=== PATIENT | male | born 1940 | race Caucasian/White ===

== ENCOUNTER 2017-08-27 08:35 | Emergency (ER) | payer MEDICARE, BC ==
[2017-08-27] MEDS ORDERED: Digoxin 500 MCG/2 ML Amp IVPUSH ONE (08:58)
--- NOTE | 2017-08-27 09:04 | EDM.PDOC ---
ED HPI GENERAL MEDICAL PROBLEM - General Chief Complaint: Cardiovascular Problem Stated Complaint: A FIB Time Seen by Provider: 08/27/17 08:45 Source of Information: Reports: Patient, Old Records History Limitations: Reports: No Limitations - History of Present Illness INITIAL COMMENTS - FREE TEXT/NARRATIVE: 77 yo male with a hx of intermittent Afib was started yesterday on Diltiazem for rate control. Says his BP pre-diltiazem was about 120 systolic. Now he is light-headed when he gets up. Arrives for this reason in the ER via EMS from his home. He denies CP or SOB. His last INR was about 3 weeks ago(is on warfarin ). Has not tolerated beta blockers in the past(or Sotalol) for the same reason that he is not today tolerating the diltiazem. The dose of his Cardizem CD is 120 mg and his HR with this is running from 90-115/min at rest. BP per EMS pre- fluid bolus was about 80-90 systolic. 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/IO (IV fluids per EMS with some improvement in sx's already.) - Related Data Allergies Allergy/AdvReac Type Severity Reaction Status Date / Time No Known Allergies Allergy Verified 08/27/17 08:41 Home Meds: Home Meds Finasteride [Proscar] 5 mg PO BEDTIME 06/30/15 [History] Pravastatin [Pravachol] 40 mg PO BEDTIME 06/30/15 [History] Tamsulosin [Flomax] 1 cap PO DAILY 06/30/15 [History] Warfarin [Coumadin] 7.5 mg PO ASDIRECTED 06/30/15 [History] Warfarin [Coumadin] 10 mg PO ASDIRECTED 06/30/15 [History] Diltiazem HCl [Cartia Xt] 120 mg PO DAILY 08/27/17 [History] Magnesium Chloride [Slow-Mag] 71.5 mg PO DAILY 08/27/17 [History] Past Medical History HEENT History: Reports: Impaired Vision - Past Surgical History Other Cardiovascular Surgeries/Procedures: cardiac ablation GI Surgical History: Reports: Appendectomy, Hernia Repair/Other Male Surgical History: Reports: Vasectomy Musculoskeletal Surgical History: Reports: Knee Replacement Other Musculoskeletal Surgeries/Procedures:: knee replacement Social & Family History - Tobacco Use Smoking Status *Q: Never Smoker Second Hand Smoke Exposure: No - Caffeine Use Caffeine Use: Reports: Coffee - Alcohol Use Days Per Week of Alcohol Use: 2 Number of Drinks Per Day: 1 Total Drinks Per Week: 2 - Recreational Drug Use Recreational Drug Use: No Drug Use in Last 12 Months: No ED ROS GENERAL - Review of Systems Review Of Systems: See Below Constitutional: Reports: No Symptoms HEENT: Reports: No Symptoms Respiratory: Reports: No Symptoms Cardiovascular: Reports: Lightheadedness (when upright) Endocrine: Reports: No Symptoms GI/Abdominal: Reports: No Symptoms : Reports: No Symptoms Musculoskeletal: Reports: No Symptoms Skin: Reports: No Symptoms Neurological: Reports: No Symptoms Psychiatric: Reports: No Symptoms ED EXAM, GENERAL - Physical Exam Exam: See Below Exam Limited By: No Limitations General Appearance: Alert, WD/WN, No Apparent Distress Eye Exam: Bilateral Eye: Normal Inspection, PERRL Ears: Normal External Exam, Normal Canal, Hearing Grossly Normal, Normal TMs Ear Exam: Bilateral Ear: Auricle Normal, Canal Normal Nose: Normal Inspection, Normal Mucosa, No Blood Throat/Mouth: Normal Inspection, Normal Lips, Normal Oropharynx, Normal Voice, No Airway Compromise Head: Atraumatic, Normocephalic Neck: Normal Inspection, Supple, Non-Tender Respiratory/Chest: No Respiratory Distress, Lungs Clear, Normal Breath Sounds Cardiovascular: Tachycardia, Irregularly Irregular GI/Abdominal: Normal Bowel Sounds, Soft, Non-Tender, No Distention Back Exam: Normal Inspection. No: CVA Tenderness (R), CVA Tenderness (L) Extremities: Normal Inspection, Normal Range of Motion, Non-Tender, No Pedal Edema Neurological: Alert, Oriented, CN II-XII Intact, Normal Cognition, No Motor/ Sensory Deficits Psychiatric: Normal Affect, Normal Mood Skin Exam: Warm, Dry, Intact, Normal Color, No Rash Lymphatic: No Adenopathy EKG INTERPRETATION EKG Date: 08/27/17 Time: 07:45 Rhythm: A-Fib Rate (Beats/Min): 115 [place]: Normal P-Wave: Absent QRS: Wide (non-specific intraventricular conduction block) ST-T: Normal QT: Normal Comparison: NA - No Prior EKG EKG Interpretation Comments: Done by EMS before arrival. Course - Vital Signs Text/Narrative:: Was able to ambulate in the ER without any more light-headedness. Last Recorded V/S: Last Vital Signs Temp 36.4 C 08/27/17 08:48 Pulse 99 08/27/17 09:06 Resp 16 08/27/17 08:48 BP 111/51 L 08/27/17 08:48 Pulse Ox 94 L 08/27/17 08:48 - Orders/Labs/Meds Orders: Active Orders 24 hr Category Date Time Status Cardiac Monitoring [RC] .As Directed Care 08/27/17 08:41 Active Labs: Laboratory Tests 08/27/17 08/27/17 08/27/17 Range/Units 08:51 08:51 08:51 WBC 7.0 (4.5-11.0) K/uL RBC 4.76 (4.30-5.90) M/uL Hgb 14.5 (12.0-15.0) g/dL Hct 44.6 (40.0-54.0) % MCV 94 (80-98) fL MCH 31 (27-31) pg MCHC 33 (32-36) % Plt Count 271 (150-400) K/uL PT 27.4 H (9.5-12.0) sec INR 2.47 H (0.80-1.20) Sodium 142 (140-148) mmol/L Potassium 4.3 (3.6-5.2) mmol/L Chloride 107 (100-108) mmol/L Carbon Dioxide 27 (21-32) mmol/L Anion Gap 8.3 (5.0-14.0) mmol/L BUN 18 (7-18) mg/dL Creatinine 1.1 (0.8-1.3) mg/dL Est Cr Clr Drug Dosing 62.71 mL/min Estimated GFR (MDRD) > 60 (>60) Glucose 123 H (74-106) mg/dL Calcium 9.0 (8.5-10.1) mg/dL Troponin I 0.017 (0.000-0.056) ng/mL Meds: Medications Discontinued Medications Generic Name Dose Route Start Last Admin Trade Name Freq PRN Reason Stop Dose Admin Digoxin 500 mcg 08/27/17 08:58 08/27/17 09:06 Lanoxin IVPUSH 08/27/17 08:59 500 mcg ONETIME ONE Administration Departure - Departure Time of Disposition: 09:40 Disposition: Home, Self-Care 01 Condition: Good Clinical Impression: Hypotension due to medication, Atrial fibrillation with RVR Referrals: PCP,None [Primary Care Provider] - Forms: ED Department Discharge - My Orders Last 24 Hours: My Active Orders 08/27/17 08:41 Cardiac Monitoring [RC] .As Directed - Assessment/Plan Last 24 Hours: My Active Orders 08/27/17 08:41 Cardiac Monitoring [RC] .As Directed
[2017-08-27 09:17] VITALS: BP 111/51
== END 2017-08-27 10:00 | disposition home or self-care (01) ==
LOC: JP.ED 08:35
DX: I95.2 Hypotension due to drugs (principal); T46.1X5A Adverse effect of calcium-channel blockers, initial encounter; I48.91 Unspecified atrial fibrillation; Z79.01 Long term (current) use of anticoagulants; Z79.899 Other long term (current) drug therapy
CPT/HCPCS: 36415; 80048; 84484; 85027; 85610; 96374; 99284; J1160; 99283

== ENCOUNTER 2023-12-20 15:30 | Emergency (ER) | payer MEDICARE ==
[2023-12-20 16:20] VITALS: BP 136/73; PULSE 63
== END 2023-12-20 16:48 | disposition left against medical advice (07) ==
LOC: JP.ED 15:30
DX: Z53.21 Procedure and treatment not carried out due to patient leaving prior to being seen by health care provider (principal)

== ENCOUNTER 2025-01-30 10:50 | Emergency (ER) | payer MEDICARE ==
[2025-01-30 11:15] VITALS: PULSE 60
[2025-01-30] MEDS: Tranexamic Acid 1,000 MG/10 ML Vial TOP ONE (11:35)
[2025-01-30 11:55] LABS: BASOPHILS ABSOLUTE AUTO 0.06 K/uL (0.00-0.10); BASOPHILS PERCENT AUTO 0.7 % (0.1-1.3); HEMATOCRIT 40.1 % (38.4-49.7); IMMATURE GRAN PERCENT AUTO 0.2 % (0.0-0.7); LYMPHOCYTES ABSOLUTE AUTO 1.28 K/uL (0.8-3.3); LYMPHOCYTES PERCENT AUTO 14.7 % (11.4-47.7); MEAN CORPUSCULAR HEMOGLOBIN 30.1 pg (31.6-35.5); MEAN CORPUSCULAR HGB CONC 32.4 g/dL (31.6-35.5); MEAN CORPUSCULAR VOLUME 92.8 fL (81.4-99.0); MONOCYTES ABSOLUTE AUTO 0.46 K/uL (0.20-0.90); MONOCYTES PERCENT AUTO 5.3 % (3.3-12.6); NEUTROPHILS ABSOLUTE AUTO 6.88 K/uL (1.0-7.6); NEUTROPHILS PERCENT AUTO 79.1 % (40.0-78.1); PLATELET COUNT,PLT 238 K/uL (130-375); RED BLOOD CELL COUNT 4.32 M/uL (4.14-5.76); WHITE BLOOD CELL COUNT,WBC 8.7 K/uL (3.2-11.0)
[2025-01-30 12:00] LABS: IMMATURE GRAN ABSOLUTE AUTO 0.02 K/uL (0.00-0.23)
[2025-01-30 12:12] LABS: INR 2.5; PROTHROMBIN TIME 24.5 sec (9.2-10.6)
[2025-01-30 12:17] LABS: A/G RATIO 1.1 (1.2-2.2); ALANINE AMINOTRANSFERASE,ALT 18 U/L (12-78); ALBUMIN 3.4 g/dL (3.4-5.0); ALKALINE PHOSPHATASE 107 U/L (46-116); ANION GAP 7.5 mmol/L (5.0-14.0); ASPARTATE AMNIOTRANSFERASE,AST 20 U/L (15-37); BILIRUBIN TOTAL 0.7 mg/dL (0.2-1.0); BLOOD UREA NITROGEN,BUN 23 mg/dL (7-18); CALCIUM 9.2 mg/dL (8.5-10.1); CARBON DIOXIDE,CO2 30 mmol/L (21-32); CHLORIDE,CL 103 mmol/L (100-108); CREATININE 0.9 mg/dL (0.8-1.3); EST CRCL DRUG DOSING (CG) 66.24 mL/min; ESTIMATED GFR 85 mL/min (>60); GLUCOSE RANDOM 113 mg/dL (74-106); POTASSIUM,K 4.6 mmol/L (3.6-5.2); PROTEIN TOTAL,TP 6.6 g/dL (6.4-8.2); SODIUM,NA 140 mmol/L (140-148)
[2025-01-30 12:32] VITALS: BP 106/58
== END 2025-01-30 12:34 | disposition home or self-care (01) ==
LOC: JP.ED 10:50
DX: R04.0 Epistaxis (principal); Z90.49 Acquired absence of other specified parts of digestive tract; Z79.899 Other long term (current) drug therapy
CPT/HCPCS: 30901; 36415; 80053; 85025; 85610; 99283; 99283-25

== ENCOUNTER 2025-03-21 23:48 | Emergency (ER) | payer MEDICARE ==
[2025-03-22 00:36] VITALS: BP 176/87; PULSE 96
[2025-03-22 02:22] LABS: BASOPHILS ABSOLUTE AUTO 0.05 K/uL (0.00-0.10); BASOPHILS PERCENT AUTO 0.5 % (0.1-1.3); EOSINOPHILS ABSOLUTE AUTO 0.11 K/uL (0.00-0.40); EOSINOPHILS PERCENT AUTO 1.1 % (0.0-5.4); HEMATOCRIT 38.7 % (38.4-49.7); HEMOGLOBIN 12.5 g/dL (12.9-16.9); IMMATURE GRAN ABSOLUTE AUTO 0.03 K/uL (0.00-0.23); IMMATURE GRAN PERCENT AUTO 0.3 % (0.0-0.7); LYMPHOCYTES ABSOLUTE AUTO 1.54 K/uL (0.8-3.3); LYMPHOCYTES PERCENT AUTO 14.9 % (11.4-47.7); MEAN CORPUSCULAR HEMOGLOBIN 30.4 pg (31.6-35.5); MEAN CORPUSCULAR HGB CONC 32.3 g/dL (31.6-35.5); MEAN CORPUSCULAR VOLUME 94.2 fL (81.4-99.0); MONOCYTES ABSOLUTE AUTO 0.52 K/uL (0.20-0.90); NEUTROPHILS PERCENT AUTO 78.2 % (40.0-78.1); PLATELET COUNT,PLT 263 K/uL (130-375); RED BLOOD CELL COUNT 4.11 M/uL (4.14-5.76); WHITE BLOOD CELL COUNT,WBC 10.4 K/uL (3.2-11.0)
[2025-03-22 02:38] LABS: INR 2.5; PROTHROMBIN TIME 24.3 sec (9.2-10.6)
== END 2025-03-22 03:03 | disposition home or self-care (01) ==
LOC: JP.ED 23:48
DX: R04.0 Epistaxis (principal); Z79.01 Long term (current) use of anticoagulants; Z79.899 Other long term (current) drug therapy; Z90.49 Acquired absence of other specified parts of digestive tract; Z87.891 Personal history of nicotine dependence
CPT/HCPCS: 30901; 36415; 85025; 85610; 99282; 99283-25

== ENCOUNTER 2025-03-24 07:35 | Emergency (ER) | payer MEDICARE ==
[2025-03-24 07:47] VITALS: BP 131/75; PULSE 65
== END 2025-03-24 08:40 | disposition home or self-care (01) ==
LOC: JP.ED 07:35
DX: R04.0 Epistaxis (principal); Z79.899 Other long term (current) drug therapy; Z90.49 Acquired absence of other specified parts of digestive tract; Z87.891 Personal history of nicotine dependence
CPT/HCPCS: 99283

== ENCOUNTER 2025-08-15 02:42 | Emergency (ER) | payer MEDICARE ==
[2025-08-15 03:02] LABS: BASOPHILS ABSOLUTE AUTO 0.06 K/uL (0.00-0.10); BASOPHILS PERCENT AUTO 1.0 % (0.1-1.3); EOSINOPHILS ABSOLUTE AUTO 0.15 K/uL (0.00-0.40); EOSINOPHILS PERCENT AUTO 2.4 % (0.0-5.4); IMMATURE GRAN PERCENT AUTO 0.2 % (0.0-0.7); LYMPHOCYTES ABSOLUTE AUTO 1.69 K/uL (0.8-3.3); LYMPHOCYTES PERCENT AUTO 27.2 % (11.4-47.7); MONOCYTES ABSOLUTE AUTO 0.57 K/uL (0.20-0.90); MONOCYTES PERCENT AUTO 9.2 % (3.3-12.6); NEUTROPHILS ABSOLUTE AUTO 3.74 K/uL (1.0-7.6); NEUTROPHILS PERCENT AUTO 60.0 % (40.0-78.1); PLATELET COUNT,PLT 269 K/uL (130-375); RED BLOOD CELL COUNT 4.33 M/uL (4.14-5.76); WHITE BLOOD CELL COUNT,WBC 6.2 K/uL (3.2-11.0)
[2025-08-15 03:04] LABS: IMMATURE GRAN ABSOLUTE AUTO 0.01 K/uL (0.00-0.23)
[2025-08-15 03:19] LABS: INR 1.1
[2025-08-15 04:55] VITALS: BP 160/90; PULSE 60
== END 2025-08-15 05:04 | disposition other institution (70) ==
LOC: JP.ED 02:42
DX: R04.0 Epistaxis (principal); Z79.899 Other long term (current) drug therapy; Z79.01 Long term (current) use of anticoagulants
CPT/HCPCS: 30901; 36415; 85025; 85610; 99284-25; 99285

== ENCOUNTER 2025-08-29 06:46 | Emergency (ER) | payer MEDICARE ==
[2025-08-29 07:02] VITALS: BP 135/81; PULSE 66
== END 2025-08-29 07:43 | disposition home or self-care (01) ==
LOC: JP.ED 06:46
DX: R04.0 Epistaxis (principal); Z79.899 Other long term (current) drug therapy; I48.91 Unspecified atrial fibrillation
CPT/HCPCS: 99282; 99283

== ENCOUNTER 2025-09-24 12:45 | Emergency (ER) | payer MEDICARE ==
[2025-09-24 13:13] LABS: BASOPHILS ABSOLUTE AUTO 0.06 K/uL (0.00-0.10); BASOPHILS PERCENT AUTO 0.6 % (0.1-1.3); EOSINOPHILS PERCENT AUTO 0.1 % (0.0-5.4); IMMATURE GRAN ABSOLUTE AUTO 0.03 K/uL (0.00-0.23); IMMATURE GRAN PERCENT AUTO 0.3 % (0.0-0.7); LYMPHOCYTES ABSOLUTE AUTO 1.87 K/uL (0.8-3.3); LYMPHOCYTES PERCENT AUTO 18.6 % (11.4-47.7); MONOCYTES ABSOLUTE AUTO 0.80 K/uL (0.20-0.90); MONOCYTES PERCENT AUTO 8.0 % (3.3-12.6); NEUTROPHILS ABSOLUTE AUTO 7.29 K/uL (1.0-7.6); NEUTROPHILS PERCENT AUTO 72.4 % (40.0-78.1); PLATELET COUNT,PLT 272 K/uL (130-375); RED BLOOD CELL COUNT 4.22 M/uL (4.14-5.76); WHITE BLOOD CELL COUNT,WBC 10.1 K/uL (3.2-11.0)
[2025-09-24 13:18] LABS: EOSINOPHILS ABSOLUTE AUTO 0.01 K/uL (0.00-0.40)
[2025-09-24 13:32] LABS: A/G RATIO 1.1 (1.2-2.2); ALANINE AMINOTRANSFERASE,ALT 28 U/L (12-78); ASPARTATE AMNIOTRANSFERASE,AST 50 U/L (15-37); BILIRUBIN TOTAL 1.1 mg/dL (0.2-1.0); BLOOD UREA NITROGEN,BUN 16 mg/dL (7-18); CARBON DIOXIDE,CO2 29 mmol/L (21-32); CHLORIDE,CL 99 mmol/L (100-108); CREATININE 0.9 mg/dL (0.8-1.3); ESTIMATED GFR 84 mL/min (>60); GLUCOSE RANDOM 113 mg/dL (74-106); POTASSIUM,K 5.2 mmol/L (3.6-5.2); PROTEIN TOTAL,TP 7.2 g/dL (6.4-8.2); SODIUM,NA 134 mmol/L (140-148); TROPONIN I HIGH SENSITIVITY 31.3 pg/mL (<=60.3); TSH ULTRASENSITIVE 5.325 uIU/mL (0.358-3.740)
[2025-09-24] MEDS: Sodium Chloride 0.9% 10 ML Syringe FLUSH ONE (14:12)
[2025-09-24] MEDS: Iopamidol 755 Mg/ML 100 ML Bottle IV ONE (14:12)
[2025-09-24 14:38] LABS: APPEARANCE,URINE CLEAR (CLEAR); GLUCOSE,URINE NEGATIVE (NEGATIVE); OCCULT BLOOD,URINE NEGATIVE (NEGATIVE)
[2025-09-24 14:45] LABS: SQUAMOUS EPITHELIAL CELLS,UR NOT SEEN /HPF; UROTHELIAL CELLS,URINE NOT SEEN /HPF
[2025-09-24] MEDS: Metoprolol Tartrate 5 MG/5 ML SDV IVPUSH ONE (16:55)
[2025-09-24 17:53] VITALS: PULSE 110
[2025-09-24 18:11] VITALS: BP 138/97
[2025-09-25] MEDS: Metoprolol Tartrate 5 MG/5 ML SDV IV ONE (07:39)
== END 2025-09-24 18:14 | disposition home or self-care (01) ==
LOC: JP.ED 12:45
DX: I48.91 Unspecified atrial fibrillation (principal); Z90.49 Acquired absence of other specified parts of digestive tract; Z79.899 Other long term (current) drug therapy
CPT/HCPCS: 36415; 71275; 80053; 81001; 83605; 84443; 84484; 85025; 87428; 93005; 93010; 96361; 96374; 99284; 99285; J0616; J7030; Q9967